=== PATIENT | female | born 2005 | race Caucasian/White ===

== ENCOUNTER 2024-07-25 05:30 | Emergency (ER) | payer MEDICAID ==
[~2024-07-25] VITALS: Ht 165.1 cm; Wt 50.0 kg
[2024-07-25] MEDS: proCHLORperazine 10 MG/2 ml inj IV ONE (05:45)
[2024-07-25] MEDS: diphenhydrAMINE 50 mg/ml inj IV ONE (06:54)
[2024-07-25] MEDS: ondansetron/PF 4mg/2ml inj IV ONE (06:54)
[2024-07-25] MEDS: LORazepam 2 mg/ml vial IV ONE (07:03)
[2024-07-25] MEDS: normal saline 1000ml 1,000 ML IV ONE (07:03)
[2024-07-25 07:30] LABS: ALBUMIN 4.8 G/DL (3.4-5.0); ANION GAP 16 (8-16); BLOOD UREA NITROGEN 10 MG/DL (7-18); BUN/CREATININE RATIO 9.3 (10.0-20.0); CALCIUM 9.2 MG/DL (8.5-10.1); CHLORIDE 97 MMOL/L (99-107); CREATININE 1.07 MG/DL (0.40-0.90); GLUCOSE 159 MG/DL (70-104); LIPASE 12 U/L (16-77); SODIUM 135 MMOL/L (135-145); TOTAL CARBON DIOXIDE 21.8 MMOL/L (24-32); eCRCL 67 ML/MIN; eGFR 66 ML/MIN
[2024-07-25] MEDS ORDERED: ONDA-243 PO (07:30)
[2024-07-25 07:44] LABS: BASOPHILS % (AUTO) 0.1 % (0-1); EOSINOPHILS % (AUTO) 0.1 % (0-6); LYMPHOCYTES # (AUTO) 0.4 X10'3 (1.1-4.8); LYMPHOCYTES % (AUTO) 2.5 % (21-51); MEAN CORPUSCULAR HEMOGLOBIN 30.5 PG (27.0-31.0); MEAN CORPUSCULAR HGB CONC 34.4 g/dL (33.0-36.5); MEAN CORPUSCULAR VOLUME 88.9 FL (78-98); MONOCYTES # (AUTO) 0.8 X10'3 (0-0.9); MONOCYTES % (AUTO) 4.8 % (2-12); NEUTROPHILS # (AUTO) 14.7 X10'3 (1.8-7.7); NEUTROPHILS % (AUTO) 92.5 % (42-75); PLATELET COUNT 451 X10'3 (140-440); RED BLOOD COUNT 3.93 X10'6 (4.20-5.60); RED CELL DISTRIBUTION WIDTH 13.7 % (11.5-14.5); WHITE BLOOD COUNT 15.9 X10'3 (4.5-11.0)
[2024-07-25] MEDS ORDERED: POTA-207 PO (07:44)
[2024-07-25 07:51] VITALS: BP 110/59; PULSE 85; RESP 16; TEMP 98.7; O2SAT 97
== END 2024-07-25 07:53 | disposition home or self-care (01) ==
LOC: ER 05:31
DX: R11.2 Nausea with vomiting, unspecified (principal); F41.9 Anxiety disorder, unspecified; E87.6 Hypokalemia; Z79.899 Other long term (current) drug therapy
CPT/HCPCS: 36415; 80048; 83690; 85025; 96361; 96374; 96375; 99284; J1200; J2060; J2405; J7030